=== PATIENT | female | born 1970 | race Caucasian/White ===

== ENCOUNTER 2018-03-27 09:02 | Emergency (ER) | payer BC ==
--- NOTE | 2018-03-27 10:37 | UC ---
Throat Pain/Nasal [place] HPI - HPI Summary HPI Summary: Noticed some swelling under the right lateral mandible. Much worse over night and this morning. Difficulty opening her mouth due to the neck swelling and pain. No problems swallowing or breathing. - History of Current Complaint Stated Complaint: NECK SWELLING/BILAT EAR PAIN Time Seen by Provider: 03/27/18 10:30 Hx Obtained From: Patient ?: No Onset/Duration: Sudden Onset, Lasting Days - 1, Worse Since - last night Severity: Severe Cough: None Associated Signs & Symptoms: Negative: Dysphagia, FB Sensation, Drooling, Fever , Vomiting - Allergies/Home Medications Allergies/Adverse Reactions: Allergies Allergy/AdvReac Type Severity Reaction Status Date / Time latex Allergy Rash Verified 03/27/18 10:36 Penicillins Allergy Rash Verified 03/27/18 10:36 PMH/Surg Hx/FS Hx/Imm Hx Previously Healthy: Yes - Surgical History Surgical History: Yes - gastric sleeve/ pouch - Family History Known Family History: Positive: Diabetes - Social History Occupation: Employed Full-time Lives: With Family Review of Systems ENT: Sore Throat Is Patient Immunocompromised?: No All Other Systems Reviewed And Are Negative: Yes Physical Exam Triage Information Reviewed: Yes Appearance: Well-Appearing, Well-Nourished, Pain Distress - mild Vital Signs Reviewed: Yes Eyes: Positive: Conjunctiva Clear ENT: Positive: Pharynx normal - unable to fully open mouth with neck swellin, TMs normal. Negative: Trismus, Muffled voice Neck: Positive: Tenderness @ - right submandibular LA much larger and more tender than left Respiratory Exam: Normal Cardiovascular Exam: Normal Musculoskeletal: Positive: ROM Limited @ - in the neck. Neurological Exam: Normal Psychological Exam: Normal Skin Exam: Normal Throat Pain/Nasal Course/Dx - Differential Dx/Diagnosis Differential Diagnosis/HQI/PQRI: Epiglottitis, Laryngitis, Peritonsillar Abscess , Pharyngitis Provider Diagnoses: Cervical adenitis Discharge - Sign-Out/Discharge Documenting (check all that apply): Discharge/Admit/Transfer - Discharge Plan Condition: Stable Disposition: HOME Prescriptions: Clindamycin Cap(NF) [Clindamycin Cap 300 mg Cap(NF)] 300 mg PO Q6H #40 cap Patient Education Materials: Adenitis (ED), Clindamycin (By mouth) Referrals: Allie Andrea [Primary Care Provider] - Additional Instructions: IF YOU HAVE MORE SWELLING WITH DIFFICULTY SWALLOWING TO TO THE ER. IF YOU HAVE DIFFICULTY BREATHING CALL 911. - Billing Disposition and Condition Condition: STABLE Disposition: HOME
== END 2018-03-27 11:16 | disposition home or self-care (01) ==
LOC: UCCORT 09:02
DX: I88.9 Nonspecific lymphadenitis, unspecified (principal); Z88.0 Allergy status to penicillin; Z91.040 Latex allergy status; Z98.84 Bariatric surgery status; Z83.3 Family history of diabetes mellitus
CPT/HCPCS: 99202; G0463